=== PATIENT | male | born 1965 | race Two or more races ===

== ENCOUNTER 2019-11-10 06:24 | Emergency (ER) | payer OTHER ==
[~2019-11-10] VITALS: Ht 175.3 cm; Wt 92.5 kg
[2019-11-10] MEDS ORDERED: Robaxin-750750 MG PO (09:14)
[2019-11-10] MEDS ORDERED: IBUP800 PO (09:14)
== END 2019-11-10 10:11 | disposition home or self-care (01) ==
LOC: ER 06:24
DX: S09.90XA Unspecified injury of head, initial encounter (principal); S16.1XXA Strain of muscle, fascia and tendon at neck level, initial encounter; S39.012A Strain of muscle, fascia and tendon of lower back, initial encounter; S60.222A Contusion of left hand, initial encounter; V64.5XXA Driver of heavy transport vehicle injured in collision with heavy transport vehicle or bus in traffic accident, initial encounter
CPT/HCPCS: 70450; 72100; 72125; 73120; 96374; 99284-25; J1885